=== PATIENT | female | born 1985 | race Two or more races ===

== ENCOUNTER 2022-06-12 16:37 | Emergency (ER) | payer MEDICAID, OTHER ==
[~2022-06-12] VITALS: Ht 167.6 cm; Wt 91.9 kg
[2022-06-12] MEDS ORDERED: KETOROLAC TROMETH 60MG/2ML VIAL IM ONE (20:30)
[2022-06-12 20:58] VITALS: BP 122/80
[2022-06-12] MEDS ORDERED: SODIUM CHLORIDE 0.9% 1,000 ML IV ONE (21:15)
[2022-06-13 00:03] LABS: Urine Bacteria FEW /hpf (None Seen); Urine Blood TRACE /uL (Negative); Urine Hyaline Cast FEW /lpf (0 - 2); Urine Mucus FEW (None Seen); Urine Specific Gravity 1.025 (1.001-1.035); Urine WBC 7 /hpf (0 - 5)
[2022-06-13 00:03] LABS: Urine Bacteria FEW /hpf (None Seen); Urine Blood 1+ /uL (Negative); Urine Hyaline Cast FEW /lpf (0 - 2); Urine Mucus FEW (None Seen); Urine Specific Gravity 1.018 (1.001-1.035); Urine WBC 2 /hpf (0 - 5)
== END 2022-06-12 22:31 | disposition left against medical advice (07) ==
LOC: ER 16:37
DX: R51.9 Headache, unspecified (principal); I10 Essential (primary) hypertension; Z90.49 Acquired absence of other specified parts of digestive tract
CPT/HCPCS: 70450; 81001; 96360; 96372; 99285; J1885; J7030

== ENCOUNTER 2022-10-06 01:09 | Emergency (ER) | payer MEDICAID ==
[~2022-10-06] VITALS: Ht 154.9 cm; Wt 92.8 kg
[2022-10-06 01:30] VITALS: BP 152/90
[2022-10-06] MEDS ORDERED: diphenhdrAMINE HCL 50 MG/1 ML VL IM ONE (01:45)
[2022-10-06] MEDS ORDERED: PRED20TA2 PO (02:56)
[2022-10-06] MEDS ORDERED: DIPH25CA66 PO (02:56)
[2022-10-06] MEDS ORDERED: DexAMETHasone SOD PHOS 10MG/1ML VIAL INJ IM ONE (03:00)
== END 2022-10-06 03:09 | disposition home or self-care (01) ==
LOC: ER 01:09
DX: T78.40XA Allergy, unspecified, initial encounter (principal); I10 Essential (primary) hypertension; Z90.49 Acquired absence of other specified parts of digestive tract; X58.XXXA Exposure to other specified factors, initial encounter
CPT/HCPCS: 96372; 99284; J1100; J1200